=== PATIENT | male | born 1990 | race African-American/Black ===

== ENCOUNTER 2024-07-29 21:32 | Inpatient (IN) | payer SELFPAY ==
[~2024-07-29] VITALS: Ht 177.8 cm; Wt 81.6 kg
[2024-07-29 22:21] LABS: COVID AG,FIA SOURCE NASAL SWAB
[2024-07-29 22:42] LABS: SARS-COV2 (COVID) ANTIGEN,FIA Negative (Negative)
[2024-07-29 22:43] LABS: BASOPHILS % (AUTO) 0.3 % (0.0-2.0); EOSINOPHILS % (AUTO) 6.7 % (1.0-6.0); HEMATOCRIT 47.3 % (41-53); HEMOGLOBIN 15.9 g/dL (13.5-17.5); LYMPHOCYTES # (AUTO) 1.2 K/uL (1.0-4.8); LYMPHOCYTES % (AUTO) 18.1 % (22.0-44.0); MEAN CORPUSCULAR HEMOGLOBIN 32.7 pg (26.0-34.0); MEAN CORPUSCULAR HGB CONC 33.5 G/dL (31.0-37.0); MEAN CORPUSCULAR VOLUME 98 fL (80-100); MONOCYTES # (AUTO) 0.8 K/uL (0.1-1.0); MONOCYTES % (AUTO) 12.9 % (2.0-9.0); PLATELET COUNT (AUTO) 249 K/uL (150-450); RED BLOOD CELL COUNT(AUTO) 4.84 MIL/uL (4.50-5.90); RED CELL DISTRIBUTION WIDTH 13.6 % (11.5-14.5); WHITE BLOOD COUNT (AUTO) 6.5 K/uL (4.5-11.0)
[2024-07-29 22:56] LABS: ANION GAP 15 mmol/L (8-16); CALCIUM, TOTAL 8.1 mg/dL (8.8-10.5); CARBON DIOXIDE 20 mmol/L (22-29); CHLORIDE 103 mmol/L (98-107); CREATININE 0.73 mg/dL (0.60-1.30); GLOMERULAR FILTR. RATE CALC > 60 mL/min (>60); GLUCOSE,RANDOM 112 mg/dL (70-110); POTASSIUM 3.6 mmol/L (3.5-5.1); SODIUM SERUM 138 mmol/L (136-145); UREA NITROGEN, BLOOD 8 mg/dL (7-18)
[2024-07-29 23:03] LABS: ALCOHOL, BLOOD (SERUM) 149 mg/dL (0-10)
[2024-07-30] MEDS ORDERED: LORazepam 2 MG TABLET PO PRN (01:00)
[2024-07-30] MEDS ORDERED: ZOLPIDEM TARTRATE 10 MG TABLET PO PRN (01:00)
[2024-07-30] MEDS ORDERED: HALOPERIDOL 5 MG TABLET PO PRN (01:00)
[2024-07-30 01:06] LABS: PH,URINE DRUG SCREEN 5.5 (5.0-8.0)
[2024-07-30 01:13] LABS: ALCOHOL, URINE DRUG SCREEN POSITIVE (NEGATIVE); AMPHET/METH SCREEN,URINE NEGATIVE (NEGATIVE); BARBITURATE SCREEN, URINE NEGATIVE (NEGATIVE); BENZODIAZEPINES SCREEN,URINE NEGATIVE (NEGATIVE); CANNABINOID SCREEN,URINE POSITIVE (NEGATIVE); COCAINE SCREEN,URINE POSITIVE (NEGATIVE); METHADONE SCREEN, URINE NEGATIVE (NEGATIVE); OPIATE SCREEN,URINE NEGATIVE (NEGATIVE); PHENCYCLIDINE SCREEN,URINE NEGATIVE (NEGATIVE)
[2024-07-30 05:13] VITALS: BP 155/101; PULSE 71; RESP 18; TEMP 97.6; O2SAT 100
[2024-07-30 05:40] VITALS: BP 155/101; PULSE 71; RESP 18; TEMP 97.5; O2SAT 100
[2024-07-30 05:56] VITALS: BP 155/101; PULSE 71; RESP 18; TEMP 97.5; O2SAT 100
[2024-07-30] MEDS ORDERED: CloNIDine HCL 0.1 MG TABLET PO PRN (06:45)
[2024-07-30] MEDS ORDERED: NICOTINE 14 MG/24 HOUR PATCH TD PRN (06:45)
[2024-07-30] MEDS ORDERED: MAG HYDROX/ALUMINUM HYD/SIMETH ES 30 ML SUSPENSION UDCUP PO PRN (06:45)
[2024-07-30] MEDS ORDERED: GuaiFENesin/D-METHORPHAN [SUGAR-FREE] 200-20MG/10 ML SYRUP UDCUP PO PRN (06:45)
[2024-07-30] MEDS ORDERED: IBUPROFEN 400 MG TABLET PO PRN (06:45)
[2024-07-30] MEDS ORDERED: MAGNESIUM HYDROXIDE SUSPENSION 30 ML UDCUP PO PRN (06:45)
[2024-07-30] MEDS ORDERED: DOCUSATE SODIUM 100 MG CAPSULE PO PRN (06:45)
[2024-07-30] MEDS ORDERED: LOPERAMIDE HCL 2 MG CAPSULE PO PRN (06:45)
[2024-07-30] MEDS ORDERED: ALBUTEROL SULFATE HFA 90 MCG/PUFF 8 GM INHALER IH PRN (06:45)
[2024-07-30] MEDS ORDERED: ACETAMINOPHEN 325 MG TABLET PO PRN (06:45)
[2024-07-30] MEDS ORDERED: ONDANSETRON 4 MG TABLET PO PRN (06:45)
[2024-07-30] MEDS ORDERED: PETROLATUM,WHITE 28 GM JELLY TP PRN (06:45)
[2024-07-30 10:48] VITALS: BP 143/95; PULSE 69; RESP 18; TEMP 97.1; O2SAT 98
[2024-07-30 20:26] VITALS: BP 130/77; PULSE 68; RESP 18; TEMP 97.7; O2SAT 98
[2024-07-31 08:48] VITALS: BP 137/98; PULSE 95; RESP 17; TEMP 96.8; O2SAT 97
[2024-07-31 10:09] LABS: HEMOGLOBIN A1C 5.4 % (3.8-5.6)
[2024-07-31 10:44] LABS: THYROID STIMULATING HORMONE 0.86 uIU/mL (0.36-3.74)
[2024-07-31 11:06] LABS: CHOL/HDL RATIO 1.8 (4.2-7.3)
== END 2024-07-31 13:24 | disposition home or self-care (01) | DRG 881 ==
LOC: EMS 21:32 → B2S 07-30 03:08
PROVIDERS: ADMIT Psychiatry & Neurology Psychiatry; ATTEND Psychiatry & Neurology Psychiatry
PROC: GZHZZZZ Group Psychotherapy (ICD-10-PCS; principal; 2024-07-30)
DX: F43.21 Adjustment disorder with depressed mood (principal); R45.851 Suicidal ideations; F12.10 Cannabis abuse, uncomplicated; F14.10 Cocaine abuse, uncomplicated; F32.9 Major depressive disorder, single episode, unspecified; F10.10 Alcohol abuse, uncomplicated; Y90.6 Blood alcohol level of 120-199 mg/100 ml; Z20.822 Contact with and (suspected) exposure to COVID-19
CPT/HCPCS: 80048; 80061; 80307; 83036; 84443; 85025; G0480